=== PATIENT | female | born 1930 | race Caucasian/White ===

== ENCOUNTER 2020-03-07 01:14 | Inpatient (IN) | payer MEDICARE, OTHER ==
[~2020-03-07] VITALS: Ht 165.1 cm; Wt 74.1 kg
--- NOTE | 2020-03-07 01:27 | NUR ---
PT AAOX4. MIMI SPEAKING BIBRA 102 FROM HOME C/O R HIP PAIN S/P GLF AT HOME. PT PLACED IN BED 1 ON MONITOR AND PULSE OX. -[place]. DEWEY. AT BEDSIDE SPEAKING TO PT. AWAITING ORDERS. WILL CONTINUE TO MONITOR.
--- NOTE | 2020-03-07 01:49 | NUR ---
XRAY AT BEDSIDE
[2020-03-07] MEDS ORDERED: ONDANSETRON HCL/PF 4 MG/2 ML VIAL ONE ×2 (01:50→03:05)
[2020-03-07] MEDS ORDERED: ONDANSETRON HCL/PF 4 MG/2 ML VIAL IV ONE ×2 (02:00→03:30)
--- NOTE | 2020-03-07 02:04 | NUR ---
move packet given to admitting.
--- NOTE | 2020-03-07 02:10 | NUR ---
CALLED LAB FOR COVID AND BLOOD
--- NOTE | 2020-03-07 02:10 | NUR ---
BLOOD COLLECTED AND SENT TO LAB
[2020-03-07 02:34] LABS: BASOPHILS # (AUTO) 0.1 /CMM (0.0-0.2); BASOPHILS % (AUTO) 0.7 % (0.0-2.0); EOSINOPHILS % (AUTO) 1.7 % (0.0-6.0); HEMATOCRIT 39 % (33-45); HEMOGLOBIN 12.1 g/dL (11.5-14.8); LYMPHOCYTES # (AUTO) 3.5 /CMM (0.8-4.8); LYMPHOCYTES % (AUTO) 29.1 % (20.0-44.0); MEAN CORPUSCULAR HGB CONC 31 g/dl (31.0-36.0); MEAN CORPUSCULAR VOLUME 90 fL (82-100); MONOCYTES # (AUTO) 0.6 /CMM (0.1-1.30); MONOCYTES % (AUTO) 4.8 % (2.0-12.0); NEUTROPHILS # (AUTO) 7.6 /CMM (1.8-8.9); NEUTROPHILS % (AUTO) 63.7 % (43.0-81.0); PLATELET COUNT (AUTO) 202 /CMM (150-450)
--- NOTE | 2020-03-07 02:37 | NUR ---
COVID SWAB SENT TO LAB
[2020-03-07 02:42] LABS: CALCIUM, SERUM 8.3 mg/dL (8.5-10.1); CREATININE 0.9 mg/dL (0.6-1.3); POTASSIUM 4.2 mmol/L (3.5-5.1)
[2020-03-07] MEDS ORDERED: MORPHINE SULFATE INJ 4 MG/ML DISP.SYRIN ONE (03:05)
--- NOTE | 2020-03-07 03:15 | NUR ---
COVID IS NEGATIVE
--- NOTE | 2020-03-07 03:29 | NUR ---
called [facility] for panel admission, dr. rob paged. waiting for call back
[2020-03-07] MEDS ORDERED: MORPHINE SULFATE INJ 2 MG/ML DISP.SYRIN IV ONE (03:30)
--- NOTE | 2020-03-07 03:33 | NUR ---
called rn sup for bed
--- NOTE | 2020-03-07 03:58 | NUR ---
pt assigned to [phone]
[2020-03-07] MEDS ORDERED: MAG HYDROX/AL HYDROX/SIMETH 30 ML UDC PO PRN (04:00)
[2020-03-07] MEDS ORDERED: MORPHINE SULFATE INJ 2 MG/ML DISP.SYRIN IV PRN (04:00)
[2020-03-07] MEDS ORDERED: MAGNESIUM HYDROXIDE 30 ML UDC PO PRN (04:00)
[2020-03-07] MEDS ORDERED: Z GUARD REMEDY 2 OZ OINT TP PRN (04:00)
[2020-03-07] MEDS ORDERED: ONDANSETRON HCL/PF 4 MG/2 ML VIAL IVP PRN (04:00)
[2020-03-07] MEDS ORDERED: ACETAMINOPHEN 325 MG TABLET PO PRN (04:00)
[2020-03-07 05:15] VITALS: BP 107/52
--- NOTE | 2020-03-07 05:21 | NUR ---
PT TRANSFERRED TO ROOM IN STABLE CONDITION
[2020-03-07 05:30] VITALS: BP 107/52
[2020-03-07] MEDS ORDERED: AMLO2.5T4 PO (05:35)
[2020-03-07] MEDS ORDERED: ASPI-1498 PO (05:35)
[2020-03-07] MEDS ORDERED: DONE10TA11 PO (05:35)
--- NOTE | 2020-03-07 05:45 | NUR ---
ADMISSION NOTES: RECEIVED REPORT FORM ARTURO GALEASWARES SORTER. PT FROM HOME, S/P GLF, ADMITTED UNDER MS FOR HIP FRACTURE. PT farsi and syriac SPEAKING. BROUGHT TO THE UNIT VIA GURNEY, ARRIVED AT 0505AM. TRANSFERRED TO BED VIA LOG ROLL TECHNIQUE. IV ACCESS PATENT AND FLUSHING WELL, ON HL. PT RECEIVED WITH HUYNH CATHETER IN PLACED, BAG DRAINING VIA GRAVITY. PAST MED HX OF DEMENTIA AND HTN. INVENTORY OF BELONGINGS COMPLETED BY JL TORIBIO. VS TAKEN AND RECORDED. CONTACTED FAMILY REGARDING FLU VACCINE AND PNA VACCINE, ALSO PT'S HOME MED LIST, SPOKE WITH NICKOLAS SRINIVASAN, PT'S DAUGHTER AT [phone]. SKIN ASSESSMENT PERFORMED. SAFETY PRECAUTIONS FOR FALL INITIATED, CALL LIGHT IN REACH, WILL CONTINUE MONITORING PT.
--- NOTE | 2020-03-07 05:50 | NUR ---
RN NOTES: FAMILY AND PT REFUSED FOR PNA VACCINE AND FLU VACCINE, STATE THEY DONT BELIVE IN THOSE VACCINE, AND NOT WILLING TO RECEIVE IT DESPITE PROVIDING EDUCATION. ALL INTERVIEW QUESTIONS WERE ANSWERED BY PT'S DAUGHTER NICKOLAS [phone], PER FAMILY PT FULL CODE STATUS.
--- NOTE | 2020-03-07 05:51 | NUR ---
RN NOTES/VTE: MD MADE AWARE OF VTE SCORE, NO NEW ORDERS RECEIVE, STATED THEY CAN FOLLOW UP IN AM ONCE PT SEEN BY ORTHO, IF PT NEEDS SURGERY OR NOT.
--- NOTE | 2020-03-07 06:55 | NUR ---
END OF SHIFT REPORT: RIGHT LEG REMAINS IMMOBILIZED. IV ACCESS REMAINS PATENT AND FLUSHING WELL, ON HL, NO S/S OF IV INFILTRATION NOTED. HUYNH CATHETER REMAINS IN PLACED, BAG DRAINING VIA GRAVITY. PLAN OF CARE: ORTHO CONSULT. SAFETY PRECAUTIONS FOR FALL REMAINS ENGAGGED, CALL LIGHT IN REACH, WILL ENDORSE TO DAY RN FOR TIFF.
--- NOTE | 2020-03-07 07:33 | NUR ---
MS RN OPENING NOTES RECEIVED PATIENT IN BED, AWAKE, A/O X1. PATIENT ON ROOM AIR; BREATHING IS EVEN AND UNLABORED; NO SOB NOTED. NO COMPLAINS OF PAIN AT THIS TIME. PATIENTS LEG REMAINS IMMOBILIZED. IV ACCESS ON L HAND G # 20 PRESENT AND INTACT; FLUSHING WELL. HUYNH CATH PRESENT AND IN PLACE. SAFETY PRECAUTIONS IN PLACE; BED IN LOW POSITION AND LOCKED, RAILS UP X2, CALL LIGHT WITHIN REACH. WILL CONTINUE TO MONITOR PATIENT.
[2020-03-07 10:19] LABS: IRON, SERUM 53 ug/dl (50-175); TOTAL IRON BINDING CAPACITY 384 ug/dl (250-450)
--- NOTE | 2020-03-07 11:00 | NUR ---
spoke with ortho Dr. Lopez regarding consult. will come to see pt today.
[2020-03-07 11:04] LABS: CHOLESTEROL 236 mg/dL (<200); FERRITIN 20 ng/mL (8-388); HDL CHOLESTEROL 72 mg/dL (40-60); LDL 145 mg/dL (0-99); THYROID STIMULATING HORMONE 6.453 uIU/mL (0.358-3.74); TRIGLYCERIDES 99 mg/dL (30-150)
[2020-03-07] MEDS: HYDROCODONE/APAP 5/325MG TABLET PO PRN ×2 (16:07→23:47)
--- NOTE | 2020-03-07 16:11 | NUR ---
MS RN NOTES PATIENT COMPLAINING OF R HIP PAIN AND REQUESTING PAIN MANAGEMENT. PRN NORCO [phone] ADMINISTERED. WILL REASSESS.
--- NOTE | 2020-03-07 16:12 | NUR ---
MS RN NOTES PER DR CHAIREZ PATIENT NPO AT MIDNIGHT FOR SURGERY TOMORROW.
--- NOTE | 2020-03-07 16:47 | NUR ---
MS RN NOTES CALLED FAMILY FOR TELEPHONE PROCEDURE CONSENT. FAMILY WOULD NOT SIGN AT THIS TIME; THEY ARE WAITING FOR SURGEON CALL FIRST TO DISCUSS THE PROCEDURE AND GET SOME QUESTIONS ANSWERED. SOON THE FAMILY IS CONTACTED BY THE SURGEON THEY WILL CALL BACK TO SIGN THE CONSENT. MD BASSETT.
[2020-03-07] MEDS: DONEPEZIL 5 MG TABLET PO SCH (18:01)
--- NOTE | 2020-03-07 18:59 | NUR ---
MS RN CLOSING NOTES PATIENT REMAINS IN BED, AWAKE, A/O X3. PATIENT ON ROOM AIR; BREATHING IS EVEN AND UNLABORED; NO SOB NOTED DURING THE DAY. PAIN TREATED WITH PRN PAIN MEDICATION PER MD ORDER. PATIENTS LEG REMAINS IMMOBILIZED. IV ACCESS ON RFA G # 20 PRESENT AND INTACT; NS RUNNING AT 100 MLS/HR. HUYNH CATH PRESENT AND IN PLACE WITH DAILY OUTPUT OF 700 MLS. SEEN BY ORTHO. ALL NEEDS ATTENDED THROUGHOUT THE DAY. SAFETY PRECAUTIONS IN PLACE; BED IN LOW POSITION AND LOCKED, RAILS UP X2, CALL LIGHT WITHIN REACH. WILL ENDORSE TO MOHS SURGEON/GENERAL DERMATOLOGIST NURSE.
--- NOTE | 2020-03-07 19:40 | NUR ---
MS RN NOTE: PATIENT RESTING IN BED, NO ACUTE DISTRESS NOTED. BREATHING EVEN AND UNLABORED, NO SOB NOTED. IV TO RFA IN PLACE. HUYNH CATHETER IN PLACE, DRAINING CLEAR YELLOW URINE. BED LOCKED AND IN LOWEST POSITION, CALL LIGHT IN REACH, WILL CONTINUE TO MONITOR.
[2020-03-07 20:01] LABS: BILIRUBIN,URINE NEGATIVE (NEGATIVE); BLOOD, URINE MODERATE Ery/uL (NEGATIVE); COLOR,URINE YELLOW (YELLOW); LEUKOCYTE ESTERASE ,URINE SMALL (NEGATIVE); NITRITE, URINE POSITIVE (NEGATIVE); PH,URINE 5.5 (5.0-8.0); PROTEIN,URINE NEGATIVE (NEGATIVE); UGLUCOSE NEGATIVE (NEGATIVE); UROBILINOGEN,URINE 0.2 EU/dL (0.2)
[2020-03-07 20:14] LABS: BACTERIA,URINE 2+ /HPF (None Seen); SQUAMOUS EPITHELIAL CELL,UR Few /HPF (None Seen); URINE AMORPHOUS URATE Moderate /HPF (None Seen); WBC,URINE 21-50 /HPF (0-3)
[2020-03-07 20:27] VITALS: BP 120/62
[2020-03-08] VITALS (13 sets, daily range): BP systolic 117–148; BP diastolic 61–86
--- NOTE | 2020-03-08 00:05 | NUR ---
MS RN NOTE: PATIENT TO HAVE SURGERY IN THE MORNING, INSTRUCTED NO TO EAT OR DRINK ANYMORE. PATIENT DAUGHTER WANTS TO SPEAK TO THE MD BEFORE SURGERY TO SIGN THE CONSENTS. MD AWARE. DRINKS AND FOOD REMOVED. BED LOCKED AND IN LOWEST POSITION, CALL LIGHT IN REACH. WILL CONTINUE TO MONITOR.
[2020-03-08] MEDS: IV NS 0.9% 1,000 ML IV PRN ×2 (01:51→20:50)
--- NOTE | 2020-03-08 06:10 | NUR ---
MS RN NOTE: PATIENT RESTING IN BED, NO ACUTE DISTRESS NOTED. BREATHING EVEN AND UNLABORED, NO SOB NOTED. IV TO RFA IN PLACE. HUYNH CATHETER IN PLACE, DRAINED 325ML OF CLEAR YELLOW URINE. PATIENT NPO SINCE MIDNIGHT FOR SURGERY IN AM. BED LOCKED AND IN LOWEST POSITION, CALL LIGHT IN REACH, WILL ENDORSE TO DAY NURSE TO CONTINUE WITH PLAN OF CARE.
[2020-03-08 06:56] LABS: BASOPHILS # (AUTO) 0.1 /CMM (0.0-0.2); BASOPHILS % (AUTO) 0.7 % (0.0-2.0); EOSINOPHILS % (AUTO) 0.3 % (0.0-6.0); HEMATOCRIT 32 % (33-45); HEMOGLOBIN 10.4 g/dL (11.5-14.8); LYMPHOCYTES # (AUTO) 2.1 /CMM (0.8-4.8); LYMPHOCYTES % (AUTO) 22.3 % (20.0-44.0); MEAN CORPUSCULAR HGB CONC 33 g/dl (31.0-36.0); MEAN CORPUSCULAR VOLUME 87 fL (82-100); MONOCYTES # (AUTO) 0.7 /CMM (0.1-1.30); MONOCYTES % (AUTO) 7.8 % (2.0-12.0); NEUTROPHILS # (AUTO) 6.4 /CMM (1.8-8.9); NEUTROPHILS % (AUTO) 68.9 % (43.0-81.0); PLATELET COUNT (AUTO) 180 /CMM (150-450); RED BLOOD CELL COUNT(AUTO) 3.62 MIL/uL (4.0-5.2); WHITE BLOOD COUNT (AUTO) 9.3 K/uL (4.3-11.0)
[2020-03-08 07:34] LABS: ALANINE AMINOTRANSFERASE 20 U/L (12-78); ALBUMIN 3.1 g/dL (3.4-5.0); ALKALINE PHOSPHATASE 59 U/L (46-116); ASPARTATE AMINOTRANSFERASE 18 U/L (15-37); BILIRUBIN,TOTAL 0.6 mg/dL (0.2-1.0); CARBON DIOXIDE 29 mmol/L (21-32); CHLORIDE 103 mmol/L (98-107); CREATININE 0.8 mg/dL (0.6-1.3); GLUCOSE 133 mg/dL (74-106); PHOSPHORUS 3.8 mg/dL (2.5-4.9); POTASSIUM 4.1 mmol/L (3.5-5.1); SODIUM SERUM 140 mmol/L (136-145); TOTAL PROTEIN, SERUM 6.4 g/dL (6.4-8.2); UREA NITROGEN, BLOOD 20 mg/dL (7-18)
--- NOTE | 2020-03-08 09:20 | NUR ---
MS RN NOTES RECEIVED REPORT FROM GUDELIA GIRON FOR CONTINUATION OF CARE. PATIENT RESTING COMFORTABLY IN BED. OFFERED PAIN MEDICATION D/T RIGHT HIP FRACTURE, PATIENT DID NOT WANT AT THIS TIME. PATIENT AWAITING FOR SURGERY.
--- NOTE | 2020-03-08 10:00 | NUR ---
MS RN NOTES PATIENT NAD DAUGHTER AGREED TO SURGERY OF RIGHT HIP FRACTURE AFTER SPEAKING WITH DR. CHAIREZ.
--- NOTE | 2020-03-08 10:22 | NUR ---
MS RN NOTES PATIENT OFF UNIT WENT TO OR FOR SURGERY.
[2020-03-08] MEDS ORDERED: BACITRACIN 50000 UNITS/VIAL ONE (10:51)
[2020-03-08] MEDS ORDERED: BUPIVACAINE 0.5 % PF 150 MG/30 ML VIAL ONE (10:51)
[2020-03-08] MEDS ORDERED: FENTANYL PF 100MCG/2ML AMPUL ONE ×2 (10:52→12:42)
--- NOTE | 2020-03-08 13:05 | NUR ---
MS RN NOTES RECEIVED PATIENT FROM OR NURSE, MIKY. PER NURSE MIKY PER DR. CHAIREZ, PATINE MAY RESUME ALL PREVIOUS ORDER AND CAN EAT. PATIENT RESTING COMFORTABLY IN BED. ASLEEP, BUT AROUSABLE. RIGHT HIP DRESSING INTACT.
[2020-03-08] MEDS: DONEPEZIL 5 MG TABLET PO SCH (18:08)
--- NOTE | 2020-03-08 19:15 | NUR ---
MS RN NOTES PATIENT RESTING COMFORTABLY IN BED. HOB ELEVATED. ON ROOM AIR WITHOUT S/S OF RESPIRATORY DISTRESS. S/P IM NAILING OF RIGHT HIP WTHOUT S/S OF COMPLICATIONS OBSERVED. RIGHT HIP DRESSING ITNACT. PATIENT DENIES ANY C/O PAIN NOR DISCOMFORT DURING THE SHIFT. OPFFRED PAIN MED BUT PATIENT REFUSED AT THIS TIME. RIGHT FA # 20 SL INTACT AND PATENT INFUSING NS 0.9% @ 100ML/HR. ATE DINNER ADRIANNA WELL. BED IN LOWEST POSITION ,LOCKED. BED ALARM ON. CALL LIGHT WITHIN REACH. IN NO APPARENT DISTRESS. ABLE TO VERBALIZE NEEDS.
--- NOTE | 2020-03-08 20:00 | NUR ---
MS RN NOTES: RECEIVED PATIENT IN BED, AWAKE, NO COMPLAINS OF PAIN THIS TIME, NOTED FACIAL GRIMACE HOWEVER PATIENT REFUSED TO TAKE PAIN MEDICATIONS. SAFETY AND FALL PRECAUTIONS OBSERVED. PATIENT HAS EPISODES OF CONFUSIONS- REALITY ORIENTATION DONE. EXPLAINED TO PATIENT THE REASON WHY SHE IS HERE. IVF ON GOING WITH NS AT 100ML.HR. SAFETY AND FALL PRECAUTIONS OBSERVED. WILL CONTINUE TO MONITOR PATIENT.
--- NOTE | 2020-03-09 07:24 | NUR ---
MS RN CLOSING NOTES: PATIENT RESTING IN BED COMFORTABLY. NOTED EPISODES OF CONFUSION- REORIENTED PATIENT TO REALITY OFTEN NEEDED. ATTENDED TO PATIENT'S NEEDS. SAFETY AND FALL PRECAUTIONS OBSERVED. BED ALARM ON. REMINDED PATIENT TO ALWAYS ASK FOR HELP WHEN NEEDED. WILL ENDORSE PATIENT TO INCISING MACHINE OPERATOR NURSE.
[2020-03-09 08:00] VITALS: BP 131/60
[2020-03-09] MEDS: LEVOTHYROXINE SODIUM 25 MCG TABLET PO SCH (09:16)
[2020-03-09] MEDS ORDERED: HYDROCODONE/APAP 10/325MG TABLET PO PRN (11:00)
[2020-03-09] MEDS: IV NS 0.9% 1,000 ML IV PRN (11:15)
[2020-03-09] MEDS: ASPIRIN 81 MG TAB.CHEW PO SCH (11:15)
[2020-03-09 11:36] LABS: BASOPHILS % (AUTO) 0.4 % (0.0-2.0); CALCIUM, SERUM 7.9 mg/dL (8.5-10.1); CREATININE 0.9 mg/dL (0.6-1.3); EOSINOPHILS % (AUTO) 0.2 % (0.0-6.0); HEMATOCRIT 23 % (33-45); HEMOGLOBIN 7.6 g/dL (11.5-14.8); LYMPHOCYTES # (AUTO) 1.6 /CMM (0.8-4.8); LYMPHOCYTES % (AUTO) 19.6 % (20.0-44.0); MEAN CORPUSCULAR HGB CONC 33 g/dl (31.0-36.0); MEAN CORPUSCULAR VOLUME 88 fL (82-100); MONOCYTES # (AUTO) 0.9 /CMM (0.1-1.30); NEUTROPHILS # (AUTO) 5.5 /CMM (1.8-8.9); NEUTROPHILS % (AUTO) 68.8 % (43.0-81.0); PLATELET COUNT (AUTO) 143 /CMM (150-450); POTASSIUM 3.7 mmol/L (3.5-5.1); RED BLOOD CELL COUNT(AUTO) 2.62 MIL/uL (4.0-5.2)
[2020-03-09 11:42] LABS: ALBUMIN 2.4 g/dL (3.4-5.0); BILIRUBIN,TOTAL 0.4 mg/dL (0.2-1.0); MAGNESIUM 1.9 mg/dL (1.8-2.4); PHOSPHORUS 2.6 mg/dL (2.5-4.9); TOTAL PROTEIN, SERUM 5.6 g/dL (6.4-8.2)
[2020-03-09] MEDS: ENOXAPARIN SODIUM 40 MG/0.4 ML DISP.SYRIN SQ SCH (12:04)
--- NOTE | 2020-03-09 12:30 | NUR ---
RN NOTE SPOKE WITH DR CHAIREZ AND HE CLEARED THE PATIENT FOR DISCHARGE. PER MD FIRST DRESSING CHANGE TO BE DONE BY MD AT THE OFFICE. PRIMARY NURSE IS MADE AWARE.
--- NOTE | 2020-03-09 12:40 | NUR ---
MS RN NOTE SPOKE RICKIE TO PHARMACY, [facility] STILL HAS NOT RECEIVED.
[2020-03-09] MEDS: CEFAZOLIN 1 GM in IV D5W 50 ML IV SCH ×3 (12:46→21:44)
--- NOTE | 2020-03-09 12:46 | NUR ---
MS RN NOTES RECEIVED ANCEF FROM PHARMACY, DOSE ADMINISTERED.
[2020-03-09 16:00] VITALS: BP 129/92
[2020-03-09] MEDS: DONEPEZIL 5 MG TABLET PO SCH (17:50)
--- NOTE | 2020-03-09 19:25 | NUR ---
MS RN NOTES PATIENT RESTING COMFORTABLY IN BED. HOB ELEVATED. ON ROOM AIR WITHOUT S/S OF RESPIRATORY DISTRESS. S/P IM NAILING OF RIGHT HIP WITHOUT S/S OF COMPLICATIONS OBSERVED. RIGHT HIP DRESSING INTACT. PATIENT DENIES ANY C/O PAIN NOR DISCOMFORT DURING THE SHIFT. OFFRED PAIN MED THROUGHOUT THE SHIFT BUT PATIENT REFUSED AT THIS TIME. BED IN LOWEST POSITION ,LOCKED. BED ALARM ON. CALL LIGHT WITHIN REACH. IN NO APPARENT DISTRESS. ABLE TO VERBALIZE NEEDS.
[2020-03-09 20:00] VITALS: BP 133/58
--- NOTE | 2020-03-09 20:00 | NUR ---
MS RN OPENING NOTES: RECEIVED PATIENT IN BED, AWAKE, NO COMPLAINS OF PAIN OR DISCOMFORT THIS TIME OF ASSESSMENT. PATIENT HAS NOTED EPISODES OF CONFUSION AND FORGETFULNESS- ORIENTED PATIENT TO REALITY OFTEN NEEDED. AT THE START OF THE SHIFT, PATIENT ACCIDENTALLY PULLED OUT HER IV, VISUAL LEAD ATTEMPTED TO REINSERT, HOWEVER PATIENT REFUSED. PER PATIENT I AM OKAY I DON'T NEED IT. CHARGE NURSE MADE AWARE. WILL MONITOR PATIENT.
[2020-03-10] MEDS: CEFAZOLIN 1 GM in IV D5W 50 ML IV SCH ×2 (05:00→13:00)
--- NOTE | 2020-03-10 06:21 | NUR ---
MS RN CLOSING NOTES: PATIENT IN THE ROOM, NOTED EPISODES OF FORGETFULNESS DURING THIS SHIFT. PATIENT STILL REFUSED IVF REINSERTION. NO OTHER COMPLAINS DURING THE SHIFT.WILL ENDORSE PATIENTS CARE TO DAY SHIFT NURSE FOR CONTINUITY OF CARE.
--- NOTE | 2020-03-10 07:30 | NUR ---
ms rn received on bed, awake,alert,oriented x2-3,not in any form of distress, respirations even and unlabored,no sob noted, lungs are diminished,abdomen soft,positive bowel sounds,denies pain at this time,all needs attended.
[2020-03-10 07:35] LABS: BASOPHILS # (AUTO) 0.1 /CMM (0.0-0.2); BASOPHILS % (AUTO) 0.7 % (0.0-2.0); EOSINOPHILS % (AUTO) 0.4 % (0.0-6.0); HEMATOCRIT 22 % (33-45); HEMOGLOBIN 7.1 g/dL (11.5-14.8); LYMPHOCYTES # (AUTO) 1.9 /CMM (0.8-4.8); LYMPHOCYTES % (AUTO) 22.5 % (20.0-44.0); MEAN CORPUSCULAR HGB CONC 33 g/dl (31.0-36.0); MEAN CORPUSCULAR VOLUME 87 fL (82-100); MONOCYTES # (AUTO) 0.9 /CMM (0.1-1.30); MONOCYTES % (AUTO) 10.3 % (2.0-12.0); NEUTROPHILS # (AUTO) 5.6 /CMM (1.8-8.9); NEUTROPHILS % (AUTO) 66.1 % (43.0-81.0); PLATELET COUNT (AUTO) 158 /CMM (150-450); RED BLOOD CELL COUNT(AUTO) 2.48 MIL/uL (4.0-5.2); WHITE BLOOD COUNT (AUTO) 8.4 K/uL (4.3-11.0)
[2020-03-10 07:47] LABS: ALBUMIN 2.4 g/dL (3.4-5.0); BILIRUBIN,TOTAL 0.5 mg/dL (0.2-1.0); CALCIUM, SERUM 7.6 mg/dL (8.5-10.1); CREATININE 0.8 mg/dL (0.6-1.3); POTASSIUM 3.7 mmol/L (3.5-5.1); TOTAL PROTEIN, SERUM 5.6 g/dL (6.4-8.2)
[2020-03-10 08:00] VITALS: BP 129/61
--- NOTE | 2020-03-10 09:30 | NUR ---
ms mora breakfast served,due meds given, tolerated well.
[2020-03-10] MEDS: ASPIRIN 81 MG TAB.CHEW PO SCH (09:32)
[2020-03-10] MEDS: LEVOTHYROXINE SODIUM 25 MCG TABLET PO SCH (09:32)
--- NOTE | 2020-03-10 12:00 | NUR ---
ms rn was informed that she is not going home today, daughters made aware.
[2020-03-10] MEDS: ENOXAPARIN SODIUM 40 MG/0.4 ML DISP.SYRIN SQ SCH (13:05)
[2020-03-10 16:00] VITALS: BP 138/61
[2020-03-10] MEDS: DONEPEZIL 5 MG TABLET PO SCH (18:10)
--- NOTE | 2020-03-10 18:20 | NUR ---
ms rn on bed, no distress noted,all needs attended.
--- NOTE | 2020-03-10 19:40 | NUR ---
MS RN OPENING NOTES PATIENT RESTING IN BED COMFORTABLY; A/OX2, CONFUSED/FORGETFUL; BREATHING EVENLY AND UNLABORED; TOLERATING ROOM AIR WELL; NO SOB NOTED; NO IV ACCESS SINCE 03/08, PATIENT REFUSING IV INSERTION, CHARGE NURSE AWARE; SAFETY PRECAUTIONS IMPLEMENTED; BED LOCKED IN LOW POSITION; SIDE RAILSX2; CALL LIGHT WITHIN REACH; WILL CONT TO MONITOR
[2020-03-10 20:00] VITALS: BP 130/63
--- NOTE | 2020-03-11 06:50 | NUR ---
MS RN CLOSING NOTES PATIENT RESTING IN BED COMFORTABLY; A/OX4, BREATHING EVEN AND UNLABORED; TOLERATING 2LPM VIA NC WELL; SATTING 94-96%; NO SOB NOTED; NO DISTRESS NOTED; PATIENT REPORTED SHE WANTS TO REST AND DOES NOT WANT TO BE BOTHERED IF SLEEPING; WILL INFORM DAY SHIFT; ABLE TO MAKE NEEDS KNOWN; R UA MIDLINE INTACT AND PATENT, FLUSHING WELL; ALL NEEDS RENDERED; SAFETY PRECAUTIONS IMPLEMENTED; WILL ENDORSE TIFF TO ONCOMING SHIFT
--- NOTE | 2020-03-11 07:45 | NUR ---
MS/RN - Assessment Patient is awake, A/O x 2, forgetful at times, no active bleeding seen, no complaints overnight, stable on room air, afebrile, reports mild pain to right hip op site OR= /, refused pain medication for now. POD#3 right hip IM rodding, noted with minimal dried blood on the dressing. Skin on BLE is warm to touch, mild calf tenderness, negative for edema, sensation on both lower ext are intact, partial weight bearing on RLE. Patient still refusing peripheral IV to be inserted, explained the importance but still doesn't want it. No labs ordered today. Fall and aspiration precautions maintained. Will continue with current plan of care.
[2020-03-11] MEDS: LEVOTHYROXINE SODIUM 25 MCG TABLET PO SCH (07:58)
[2020-03-11 08:00] VITALS: BP 138/63
[2020-03-11] MEDS: ASPIRIN 81 MG TAB.CHEW PO SCH (08:06)
[2020-03-11] MEDS: ENOXAPARIN SODIUM 40 MG/0.4 ML DISP.SYRIN SQ SCH (11:58)
[2020-03-11] MEDS: DONEPEZIL 5 MG TABLET PO SCH (17:25)
--- NOTE | 2020-03-11 18:15 | NUR ---
MS/RN - Discharge Patient is alert and oriented X 1-2, forgetful, discharged to [facility] in stable condition, afebrile, denies pain, not in any form of distress. Unable to give report to [facility], several calls made but one is answering the phone. All personal belongings with patient and she deny any missing items. Patient refused photos to be taken of skin. Discharge paperwork was given to the ambulance crew. Patient left the unit at 18:05. Family aware of discharge to [facility].
== END 2020-03-11 18:41 | DRG 480 ==
LOC: ER 01:17 → MED 04:54
PROVIDERS: ADMIT Internal Medicine; ATTEND Internal Medicine
PROC: 0QS606Z Reposition Right Upper Femur with Intramedullary Internal Fixation Device, Open Approach (ICD-10-PCS; principal; 2020-03-08)
DX: S72.141A Displaced intertrochanteric fracture of right femur, initial encounter for closed fracture (principal); N17.0 Acute kidney failure with tubular necrosis; W01.0XXA Fall on same level from slipping, tripping and stumbling without subsequent striking against object, initial encounter; Y92.9 Unspecified place or not applicable; F03.90 Unspecified dementia, unspecified severity, without behavioral disturbance, psychotic disturbance, mood disturbance, and anxiety; S72.21XA Displaced subtrochanteric fracture of right femur, initial encounter for closed fracture; D64.9 Anemia, unspecified; D72.829 Elevated white blood cell count, unspecified; I10 Essential (primary) hypertension; Y93.9 Activity, unspecified; Y92.89 Other specified places as the place of occurrence of the external cause; R73.9 Hyperglycemia, unspecified
CPT/HCPCS: 36415; 71045-TC; 73502; 80048-TC; 80053-TC; 80061-TC; 81001; 82728-TC; 83540-TC; 83735-TC; 84100-TC; 84439-TC; 84443-TC; 84484-TC; 85025-TC; 85730-TC; 86850-TC; 87081-TC; 87086-TC; 87186-TC; 93307-TC; 97112-TC; 97116-TC; 97530-TC; A6209; C1713; C9803; G0378; J0690; J1650; J1885; J2270; J2405; J2704; J3010; J3490; J7030; J7060